=== PATIENT | male | born 1955 | race Caucasian/White ===

== ENCOUNTER 2023-06-22 08:20 | Outpatient (CLI) | payer MEDICARE ==
[2023-06-22] MEDS ORDERED: Iopamidol 370 76% 100 ML VIAL ONE (12:08)
== END 2023-06-22 08:21 | disposition home or self-care (01) ==
LOC: BICCT 08:20
PROVIDERS: ATTEND Surgery
DX: C18.7 Malignant neoplasm of sigmoid colon (principal); K40.90 Unilateral inguinal hernia, without obstruction or gangrene, not specified as recurrent
CPT/HCPCS: 74177; 82565; Q9967

== ENCOUNTER 2023-06-28 10:30 | Inpatient (IN) | payer MEDICARE ==
[2023-06-28 10:24] VITALS: BMI 26.3
[2023-07-01] MEDS ORDERED: fentaNYL PF 100 MCG/2 ML SYRINGE ONE (06:53)
[2023-07-01] MEDS ORDERED: Midazolam HCl 2 mg/2 ml Vial ONE (07:14)
[2023-07-01] MEDS ORDERED: fentaNYL 50 mcg/mL 1 mL Vial ONE ×6 (07:14→14:39)
[2023-07-01] MEDS ORDERED: EPINEPHrine 1 MG/ML AMP ONE (07:15)
[2023-07-01] MEDS ORDERED: Lidocaine 1% (PF) 30 ML VIAL ONE (07:15)
[2023-07-01] MEDS ORDERED: Bupivacaine PF 0.5% 30 ML VIAL ONE (07:15)
[2023-07-01] MEDS ORDERED: Sodium Chloride 0.9% 100 ML ONE (07:37)
[2023-07-01] MEDS ORDERED: cefOXitin 2 GM VIAL ONE ×2 (07:37→09:56)
[2023-07-01] MEDS ORDERED: Glycopyrrolate 0.2 MG/ML 5 ML SYRINGE ONE (07:56)
[2023-07-01] MEDS ORDERED: Dexamethasone 20 MG/5 ML VIAL ONE (07:56)
[2023-07-01] MEDS ORDERED: ePHEDrine Sulfate 50 MG/10 ML VIAL ONE (07:56)
[2023-07-01] MEDS ORDERED: Ondansetron PF 4 MG/2 ML Vial ONE (07:56)
[2023-07-01] MEDS ORDERED: NEOSTIGMINE 3 MG/3 ML SYR 3 MG/3 ML SYRINGE ONE (07:56)
[2023-07-01] MEDS ORDERED: PROPOFOL 200 MG/20 ML VIAL ONE (07:56)
[2023-07-01] MEDS ORDERED: Rocuronium Bromide 10 MG/ML (10ML VIAL) ONE (07:56)
[2023-07-01] MEDS ORDERED: Lidocaine 1% PF 5 ML VIAL ONE (07:56)
[2023-07-01] MEDS ORDERED: Ondansetron HCl/PF 4 MG/2 ML Vial IVP PRN ×2 (09:10→13:47)
[2023-07-01] MEDS ORDERED: Promethazine HCl 25 MG/ML VIAL IM PRN ×4 (09:10→15:00)
[2023-07-01] MEDS ORDERED: HYDROmorphone 0.5 MG/0.5 ML SYRINGE ONE (13:41)
[2023-07-01] MEDS ORDERED: FENTANYL 500 MCG/10 ML VIAL 2,000 MCG in Sodium Chloride 0.9% 60 ML IV PRN (13:46)
[2023-07-01] MEDS ORDERED: diphenhydrAMINE 25 MG CAP PO PRN (13:46)
[2023-07-01] MEDS ORDERED: diphenhydrAMINE 50 MG/ML VIAL IVP PRN (13:46)
[2023-07-01] MEDS ORDERED: Naloxone HCl 0.4 mg/ml Vial IV PRN (13:46)
[2023-07-01] MEDS ORDERED: Ondansetron PF 4 MG/2 ML Vial IVP PRN (13:46)
[2023-07-01] MEDS ORDERED: diphenhydrAMINE 50 MG/ML VIAL IM PRN (13:46)
[2023-07-01] MEDS ORDERED: HYDROmorphone 2 MG/ML VIAL SLOW IVP PRN (13:47)
[2023-07-01] MEDS ORDERED: Communication Order-Pharmacy FS SCH (14:00)
[2023-07-01] MEDS ORDERED: Acetaminophen 325 MG TAB PO PRN (15:00)
[2023-07-01] MEDS ORDERED: Fentanyl 100 MCG/2 ML VIAL SLOW IVP PRN ×2 (15:00→15:30)
[2023-07-01] MEDS ORDERED: HYDROcodone/Acetaminophen 7.5/325 mg Tablet PO PRN ×2 (15:00→15:30)
[2023-07-01] MEDS ORDERED: Ipratropium/Albuterol 3 ML NEB NEB PRN (15:00)
[2023-07-01] MEDS: D5 1/2 NS w/20 mEq KCL 1,000 ML IV SCH (15:34)
[2023-07-01] MEDS: Ondansetron PF 4 MG/2 ML Vial IVP PRN (15:40)
[2023-07-01] MEDS: hydrALAZINE 20 MG/ML VIAL SLOW IVP PRN ×2 (16:28→22:03)
[2023-07-01] MEDS: cefOXitin 2 GM in Sodium Chloride 0.9% 100 ML IVPB SCH (17:41)
[2023-07-01] MEDS: Promethazine 25 MG TAB PO PRN ×2 (18:07→22:05)
[2023-07-01] MEDS: Flecainide 50 MG TAB PO SCH (21:57)
[2023-07-01] MEDS: Famotidine/PF 20 mg/2ml Vial SLOW IVP SCH (21:57)
[2023-07-01] MEDS: Carvedilol 6.25 MG TAB PO SCH (21:57)
[2023-07-01] MEDS: Famotidine 20 MG TAB PO SCH (21:58)
[2023-07-02] MEDS: D5 1/2 NS w/20 mEq KCL 1,000 ML IV SCH ×3 (01:01→20:34)
[2023-07-02] MEDS: cefOXitin 2 GM in Sodium Chloride 0.9% 100 ML IVPB SCH (02:00)
[2023-07-02] MEDS: Ondansetron PF 4 MG/2 ML Vial IVP PRN ×2 (02:01→18:22)
[2023-07-02 05:31] LABS: #Monocytes 1.5 thou/uL (0.11-0.59); #Neutrophils 11.7 thou/uL (1.40-6.50); %Basophils 0.1 % (0.0-1.0); %Lymphocytes 5.7 % (21.0-51.0); %Monocytes 10.8 % (0.0-10.0); %Neutrophils 82.9 % (42.0-75.0); Hematocrit 39.5 % (42.0-52.0); Hemoglobin 12.8 g/dL (14.0-18.0); Mean Corpuscular HGB CONC 32.4 g/dL (32.0-36.0); Mean Corpuscular Hemoglobin 30.6 pg (27.0-31.0); Mean Corpuscular Volume 94.5 fl (78.0-98.0); Mean Platelet Volume 10.9 fL (7.4-10.4); Platelet Count 154 10x3/uL (130-400); Red Blood Cell (RBC) Count 4.18 mill/uL (4.70-6.10); White Blood Cell (WBC) Count 14.2 10x3/uL (4.8-10.8)
[2023-07-02] MEDS: Levothyroxine 150 MCG TAB PO SCH (05:45)
[2023-07-02 06:00] LABS: Anion Gap 12 mmol/L (10-20); BUN (Urea Nitrogen) 12 mg/dL (8.4-25.7); Calc. Creatinine Clearance 106 mL/min (70-130); Calcium 8.8 mg/dL (7.8-10.44); Carbon Dioxide 23 mmol/L (23-31); Chloride 103 mmol/L (98-107); Estimated GFR 83; Glucose 222 mg/dL (80-115); Potassium 4.3 mmol/L (3.5-5.1); Sodium 134 mmol/L (136-145)
[2023-07-02] MEDS: Famotidine/PF 20 mg/2ml Vial SLOW IVP SCH ×2 (09:06→20:35)
[2023-07-02] MEDS: Losartan 25 MG TAB PO SCH (09:07)
[2023-07-02] MEDS: Isosorbide Mononitrate 30 MG ER.TAB PO SCH (09:07)
[2023-07-02] MEDS: Carvedilol 6.25 MG TAB PO SCH ×2 (09:07→20:34)
[2023-07-02] MEDS: Famotidine 20 MG TAB PO SCH ×2 (09:08→20:34)
[2023-07-02] MEDS: Flecainide 50 MG TAB PO SCH ×2 (09:17→20:34)
[2023-07-02] MEDS ORDERED: HYDROcodone/Acetaminophen 7.5/325 mg Tablet PO PRN ×2 (12:55)
[2023-07-02] MEDS ORDERED: fentaNYL 50 mcg/mL 1 mL Vial SLOW IVP PRN (12:58)
[2023-07-03] MEDS: D5 1/2 NS w/20 mEq KCL 1,000 ML IV SCH ×2 (02:03→19:15)
[2023-07-03] MEDS: Levothyroxine 150 MCG TAB PO SCH (05:34)
[2023-07-03] MEDS ORDERED: Dextrose 5% in Water 1,000 ML IV PRN (09:13)
[2023-07-03] MEDS ORDERED: Glucagon 1 MG/ML KIT IM PRN (09:13)
[2023-07-03] MEDS ORDERED: Dextrose 50% Abboject 50 ML SYRINGE SLOW IVP PRN (09:13)
[2023-07-03] MEDS ORDERED: HumaLOG 300 UNITS/3 ML VIAL SC PRN (09:13)
[2023-07-03] MEDS: Losartan 25 MG TAB PO SCH (09:17)
[2023-07-03] MEDS: Isosorbide Mononitrate 30 MG ER.TAB PO SCH (09:18)
[2023-07-03] MEDS: Flecainide 50 MG TAB PO SCH ×2 (09:18→20:02)
[2023-07-03] MEDS: Famotidine 20 MG TAB PO SCH ×2 (09:18→20:02)
[2023-07-03] MEDS: Famotidine/PF 20 mg/2ml Vial SLOW IVP SCH ×2 (09:18→20:01)
[2023-07-03] MEDS: Carvedilol 6.25 MG TAB PO SCH ×2 (09:20→20:02)
[2023-07-03] MEDS: Sodium Chloride 0.9% 1,000 ML IV SCH ×2 (10:03→20:06)
[2023-07-04] MEDS: Levothyroxine 150 MCG TAB PO SCH (05:25)
[2023-07-04] MEDS: D5 1/2 NS w/20 mEq KCL 1,000 ML IV SCH (05:25)
[2023-07-04 08:10] VITALS: TEMP 99.1
[2023-07-04] MEDS: Losartan 25 MG TAB PO SCH (08:23)
[2023-07-04] MEDS: Carvedilol 6.25 MG TAB PO SCH (08:24)
[2023-07-04] MEDS: Isosorbide Mononitrate 30 MG ER.TAB PO SCH (08:24)
[2023-07-04] MEDS: Famotidine 20 MG TAB PO SCH (08:24)
[2023-07-04] MEDS: Flecainide 50 MG TAB PO SCH (08:25)
[2023-07-04 08:30] VITALS: BP 165/85
[2023-07-04] MEDS: Famotidine/PF 20 mg/2ml Vial SLOW IVP SCH (08:30)
== END 2023-07-04 13:24 | disposition home or self-care (01) | DRG 331 ==
LOC: SURG A 07-01 05:29
PROVIDERS: ADMIT Surgery; ATTEND Surgery
PROC: 0DBN4ZZ Excision of Sigmoid Colon, Percutaneous Endoscopic Approach (ICD-10-PCS; principal; 2023-07-01)
PROC: 8E0W4CZ Robotic Assisted Procedure of Trunk Region, Percutaneous Endoscopic Approach (ICD-10-PCS; 2023-07-01)
DX: C18.7 Malignant neoplasm of sigmoid colon (principal); E11.9 Type 2 diabetes mellitus without complications; Z82.49 Family history of ischemic heart disease and other diseases of the circulatory system; Z87.891 Personal history of nicotine dependence
CPT/HCPCS: 36415; 36416; 80048; 85025; 88309; A4649; J0171; J0360; J0694; J1100; J1170; J1650; J2001; J2250; J2405; J2704; J3010; J3480; J3490; J7050; Q0169; S0020; S0028

== ENCOUNTER 2023-08-23 13:23 | Outpatient (CLI) | payer MEDICARE ==
[2023-08-23 14:52] LABS: #Basophils 0.1 10x3/uL (0.0-0.2); #Eosinphils 0.3 10x3/uL (0.0-0.5); #Monocytes 0.8 10x3/uL (0.0-1.1); #Neutrophils 3.7 10x3/uL (1.5-8.4); %Basophils 1.3 % (0.0-2.0); %Eosinophils 5.4 % (0.0-6.0); %Lymphocytes 19.7 % (18.0-47.0); %Monocytes 13.5 % (0.0-10.0); %Neutrophils 59.9 % (40.0-75.0); Hematocrit 40.5 % (38.8-50.0); Hemoglobin 13.5 g/dL (13.5-17.5); Mean Corpuscular HGB CONC 33.3 g/dL (32.0-36.0); Mean Corpuscular Hemoglobin 30.4 pg (27.0-33.0); Mean Corpuscular Volume 91.2 fl (81.2-95.1); Mean Platelet Volume 10.9 fl (7.4-10.4); Platelet Count 198 10x3/uL (150-450); RBC Distribution Width 12.6 % (11.5-14.5); Red Blood Cell (RBC) Count 4.44 10x6/uL (4.32-5.72); White Blood Cell (WBC) Count 6.1 10x3/uL (3.5-10.5)
[2023-08-23 15:06] LABS: Anion Gap 15 mmol/L (10-20); BUN (Urea Nitrogen) 12 mg/dL (8.4-25.7); Calc. Creatinine Clearance 0 mL/min (70-130); Calcium 9.4 mg/dL (7.8-10.44); Carbon Dioxide 26 mmol/L (23-31); Chloride 102 mmol/L (98-107); Estimated GFR 82; Glucose 126 mg/dL (80-115); Potassium 4.4 mmol/L (3.5-5.1); Sodium 139 mmol/L (136-145)
== END 2023-08-23 13:24 | disposition home or self-care (01) ==
LOC: LABBT 13:23
PROVIDERS: ATTEND Surgery
DX: Z01.812 Encounter for preprocedural laboratory examination (principal); K40.90 Unilateral inguinal hernia, without obstruction or gangrene, not specified as recurrent
CPT/HCPCS: 80048; 85025

== ENCOUNTER 2023-08-25 07:49 | Outpatient (CLI) | payer MEDICARE ==
[2023-08-25] MEDS ORDERED: Iopamidol 370 76% 100 ML VIAL ONE (09:32)
== END 2023-08-25 07:50 | disposition home or self-care (01) ==
LOC: CT 07:49
PROVIDERS: ATTEND Internal Medicine Hematology & Oncology
DX: C18.7 Malignant neoplasm of sigmoid colon (principal); J98.4 Other disorders of lung
CPT/HCPCS: 71260; Q9967

== ENCOUNTER 2024-02-03 09:22 | Outpatient (CLI) | payer MEDICARE | END 2024-02-03 09:23 | disposition home or self-care (01) | LOC: BICCT 09:22 | PROVIDERS: ATTEND Internal Medicine Hematology & Oncology | DX: C18.7 Malignant neoplasm of sigmoid colon (principal) | CPT/HCPCS: 71260; 74177; 82565 ==

== ENCOUNTER 2024-07-27 09:29 | Outpatient (CLI) | payer MEDICARE | END 2024-07-27 09:30 | disposition home or self-care (01) | LOC: BICCT 09:29 | PROVIDERS: ATTEND Internal Medicine Hematology & Oncology | DX: C18.9 Malignant neoplasm of colon, unspecified (principal) | CPT/HCPCS: 36415; 71260; 74177; 82565 ==